=== PATIENT | female | born 1960 | race Caucasian/White ===

== ENCOUNTER 2017-09-30 08:13 | Emergency (ER) | payer OTHER ==
[~2017-09-30] VITALS: Ht 175.3 cm; Wt 61.2 kg
[~2017-09-30 08:13] MED LIST: NOHOMEMEDICATIONS
[2017-09-30 08:44] LABS: ABSOLUTE NEUTROPHILS 6.6 thou/uL (1.4-8.2); BASOPHILS 0.6 % (0.0-2.0); EOSINOPHILS 0.5 % (0.0-3.0); HEMATOCRIT 39.7 % (37.0-47.0); HEMOGLOBIN 13.4 gm/dL (12.0-15.0); LYMPHOCYTES 15.7 % (24.0-44.0); MCH 30.8 pg (26.0-34.0); MCHC 33.7 g/dL (28.0-37.0); MCV 91.3 fL (80.0-100.0); MONOCYTES 3.1 % (1.0-8.0); PLATELET COUNT 220 thou/uL (150-400); POLYS 80.1 % (36.0-66.0); RBC 4.35 mil/uL (4.20-5.00); RDW 13.2 % (10.5-14.5); WBC 8.2 thou/uL (4.0-11.0)
[2017-09-30] MEDS ORDERED: PHENERGAN 25 MG25 M1 PO (08:53)
[2017-09-30] MEDS ORDERED: ZOFRAN ODT4 MG PO (08:53)
[2017-09-30 08:56] LABS: CALCIUM 9.1 mg/dL (8.5-10.1); CREATININE 0.7 mg/dL (0.6-1.0); POTASSIUM 3.9 mmol/L (3.5-5.1)
[2017-09-30 09:02] LABS: DIRECT BILIRUBIN 0.1 mg/dL (<0.1-0.3); TOTAL BILIRUBIN 0.7 mg/dL (<0.1-1.0); TOTAL PROTEIN 6.5 g/dL (6.4-8.2)
[2017-09-30 09:35] LABS: URINE BILIRUBIN NEGATIVE (Negative); URINE BLOOD NEGATIVE (Negative); URINE CLARITY CLEAR; URINE COLOR YELLOW; URINE GLUCOSE-RANDOM* NEGATIVE (Negative); URINE KETONES 1+ (Negative); URINE LEUKOCYTES NEGATIVE (Negative); URINE NITRITE NEGATIVE (Negative); URINE PROTEIN (DIPSTICK) NEGATIVE (Negative); URINE UROBILINOGEN 0.2 E.U./dl (0.2-1.0)
[2017-09-30 10:23] VITALS: BP 113/66
== END 2017-09-30 10:24 | disposition home or self-care (01) ==
LOC: ER 08:13
PROVIDERS: Emergency Medicine
DX: R11.2 Nausea with vomiting, unspecified (principal); R51 Headache; F17.210 Nicotine dependence, cigarettes, uncomplicated

== ENCOUNTER 2017-11-17 01:44 | Inpatient (IN) | payer OTHER ==
[~2017-11-17] VITALS: Ht 175.3 cm; Wt 64.4 kg
[2017-11-17] VITALS (8 sets, daily range): BP systolic 94–127; BP diastolic 55–72
--- NOTE | ~2017-11-17 | EKG ---
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
--- NOTE | ~2017-11-17 | CATHLAB ---
[facility] [address] [place] [address] INVASIVE PROCEDURE REPORT Name: ROE LANDIS I Room #: 212-[facility] .R.#: [id number] Admission: 11/17/17 Attend Phys: Evelyn Nielsen Discharge: Date of : 62 Date of Service: 11/18/17 1524 Report #: [id number] THIS REPORT FOR: //name// APPROVED REPORT Study performed: 11/18/2017 10:36:05 Patient Details Patient Status: In-Patient Room #: The patient is a 56 year-old female Event Personnel Eligio Gardner Name Plate Stamping Machine Operator, Mayelin Keene RTR, SQL SERVER DBA Monitor, Russell Romero RN, Hank Tijerina, Ana Rosa Nuno Procedures Performed Art Access - R femoral artery* 55545 Initial Mod Sed Same Phys/QHP Gr5y [id number] Left Heart Cath w/or w/o Coronaries [id number] [facility] Hemostasis with Manual pressure Indication Positive stress test, Chest pain Risk Factors Hypercholesterolemia, Tobacco History () Procedure Narrative The Right Groin^ was infiltrated with 1% Lidocaine subcutaneous anesthesia. A PINNACLE 4FR Sheath #[id number] sheath was inserted into the RFA^. Coronary angiography was performed using coronary diagnostic catheters. The right coronary system was accessed and visualized with a JR4 catheter. The left coronary system was accessed and visualized with a JL4 catheter. The left ventricle was accessed and visualized with a Pigtail catheter. Left ventricular/Aortic Valve gradient assessed via catheter pullback. Left ventriculogram was performed in 30 degree projection. Hemostasis was obtained with manual pressure following sheath removal without any complications. The patient tolerated the procedure well and there were no complications associated with the procedure. There was no hematoma. Intraoperative Conscious Sedation Sedation start time: 11:08 Case end Time: 11:18 [facility] [place] [address] INVASIVE PROCEDURE REPORT Name: ROE LANDIS I Room #: 212-P [facility] [place] ..#: [id number] Admission: 11/17/17 Attend Phys: Evelyn Nielsen Discharge: Date of : 62 Date of Service: 11/18/17 1524 Report #: [id number] Fentanyl 50 mcg Versed 1.5 mg Fluoro Time: 1.45 minutes Dose: DAP 1140.70 cGycm2 154 mGy Contrast Type and Amount: Omnipaque 80 ml Coronary Angiography The patient's coronary anatomy is left dominant. Diagnostic Cath Left Main Large-caliber vessel, patent with no flow-limiting lesions. LAD Moderate size caliber vessel, traveling down the anterior wall, wrapping around the apex and terminating in the distal inferior wall. There are no flow-limiting lesions in the LAD. Diagonal 1 Patent vessel, with no flow-limiting lesions. Circumflex Dominant vessel with no flow-limiting lesions. OM1 Patent vessel, with no flow-limiting lesions. OM2 Patent vessel, with no flow-limiting lesions. L PDA Small-caliber vessel, with no flow-limiting lesions. Right Coronary Small, nondominant vessel, with no flow-limiting lesions. Left Ventriculography The left ventricle is normal in size with normal contractility. The left ventricular ejection fraction is estimated to be 60-65%. Left ventricular wall motion abnormalities are not present. Hemodynamics The aortic pressure is 157/82 mmHg with a mean of 110 mmHg. The left ventricular pressure is 156/11 mmHg with a mean of mmHg. The left ventricular end diastolic pressure is 27 mmHg. Conclusion 1. Angiographically normal coronary arteries. 2. Left dominant system. 3. Normal LV systolic function. 4. Recommend risk factor management. <ELECTRONICALLY SIGNED> By: Eligio Gardner MD 11/18/17 1524 1524 1524 Eligio Gardner MD /INF
--- NOTE | ~2017-11-17 | EKG ---
[address] [employer] [place] [address] ELECTROCARDIOGRAM REPORT Name: POOL LANDISETTE Ernie Room #: 212-[facility] M.R.#: [id number] Admission: 11/17/17 Attend Phys: Evelyn Bennett Discharge: Date of : 62 Report #: [id number] THIS REPORT FOR: //name// [facility] Test Date: 2017-11-17 Test Time: 06:12:05 Pat Name: ROE LANDIS Department: Room: 212 Gender: F Patient Care Coordinator: YIFAN : 1960 Requested By: Erika Rodrigez Order Number: [id number] MD: Sajan Perla Measurements Intervals [place] Rate: 54 P: 73 SC: 165 QRS: 40 QRSD: 79 T: 63 QT: 448 QTc: 425 Interpretive Statements Sinus rhythm Anteroseptal infarct, age indeterminate Repolarization abnormality Compared to ECG 08/06/2007 09:54:43 No significant changes Electronically Signed On 11-17-2017 15:02:14 CDT by Sajan Perla [email or web address] <ELECTRONICALLY SIGNED> By: Sajan Perla MD, [facility] 11/17/17 1502 1 1 Sajan Perla MD, [facility] /EPI
[~2017-11-17 01:44] MED LIST changes: +PHENERGAN 25 MG25 M1 PO; +ZOFRAN ODT4 MG PO
[2017-11-17 02:18] LABS: HEMOGLOBIN 13.4 gm/dL (12.0-15.0); MCH 31.1 pg (26.0-34.0); MCHC 34.3 g/dL (28.0-37.0); MCV 90.6 fL (80.0-100.0); PLATELET COUNT 199 thou/uL (150-400); RDW 13.4 % (10.5-14.5); WBC 4.6 thou/uL (4.0-11.0)
[2017-11-17 02:27] LABS: ANION GAP 9 mmol/L (7-16); BUN 16 mg/dL (7-18); CALCIUM 8.9 mg/dL (8.5-10.1); CHLORIDE 107 mmol/L (98-107); CO2 25 mmol/L (21-32); CREATININE 0.6 mg/dL (0.6-1.0); GLUCOSE 97 mg/dL (74-106); POTASSIUM 3.9 mmol/L (3.5-5.1); SODIUM 141 mmol/L (136-145)
[2017-11-17 02:35] LABS: ALBUMIN 3.7 g/dL (3.4-5.0); MAGNESIUM 2.1 mg/dL (1.8-2.4); SGOT 14 U/L (15-37); SGPT 19 U/L (30-65); TOTAL BILIRUBIN 0.6 mg/dL (<0.1-1.0); TOTAL PROTEIN 6.7 g/dL (6.4-8.2); TROPONIN-I < 0.04 ng/mL (<0.06)
[2017-11-17 02:47] LABS: ABSOLUTE NEUTROPHILS 1.1 thou/uL (1.4-8.2); ATYPICAL LYMPHS 3 %
[2017-11-17 04:15] LABS: CHOLESTEROL 182 mg/dL (<200); HDL CHOLESTEROL 68 mg/dL (>40); LDL CHOLESTEROL 96 mg/dL (<100); TC:HDL 2.7 Ratio (Not establshd); TRIGLYCERIDE 94 mg/dL (<150); VLDL 19 mg/dL (<40)
[2017-11-17 04:16] LABS: SERUM ASSESSMENT Clear
[2017-11-18 04:50] VITALS: BP 99/56
[2017-11-18 07:30] VITALS: BP 121/69
[2017-11-18 13:30] VITALS: BP 102/50
[2017-11-18 15:53] VITALS: BP 111/57
== END 2017-11-18 16:15 | disposition home or self-care (01) | DRG 287 ==
LOC: ER 01:44 → 2N 02:59 → EROBS 02:59 → 2N 03:22
PROVIDERS: Emergency Medicine; Nurse Practitioner Acute Care
DX: R07.9 Chest pain, unspecified (principal); D70.9 Neutropenia, unspecified; I10 Essential (primary) hypertension; E78.5 Hyperlipidemia, unspecified; Z82.49 Family history of ischemic heart disease and other diseases of the circulatory system; Z80.6 Family history of leukemia; Z87.891 Personal history of nicotine dependence; Z79.899 Other long term (current) drug therapy; Z79.82 Long term (current) use of aspirin
CPT/HCPCS: 10081

== ENCOUNTER → 2018-02-03 | Outpatient (CLI) | payer OTHER ==
--- NOTE | ~2018-02-03 | 2DMMODE ---
[facility] [address] [place] [address] 2 D/M-MODE ECHOCARDIOGRAM Name: POOL LANDISYAN Klein Room #: REG [facility]#: [id number] Admission: 02/03/18 Attend Phys: Eligio Gardner MD Discharge: Date of : 62 Date of Service: 02/03/18 1605 Report #: [id number] THIS REPORT FOR: //name// APPROVED REPORT Study performed: 02/03/2018 14:46:55 EXAM: Comprehensive 2D, Doppler, and color-flow Echocardiogram Patient Location: Echo lab Status: routine BSA: 1.75 HR: 60 bpm BP: 127/72 mmHg Other Information Study Quality: Good Indications Palpitations 2D Dimensions RVDd: 30.61 mm LVEF(%): 14.05 (>50%) IVSd: 9.63 (7-11mm) LVOT Diam: 18.91 (18-24mm) LVDd: 48.83 mm PWd: 6.78 (7-11mm) Ascending Ao: 22.65 (22-36mm) LVDs: 45.77 (25-40mm) Aortic Root: 30.89 mm IVC: 17.00 mm Sherman's LVEF: 14.05 % Volumes Left Atrial Volume (Systole) Single Plane 4CH: 19.35 mL Single Plane 2CH: 30.71 mL LA ESV Index: 17.00 mL/m2 Aortic Valve AoV Peak Buddy.: 1.34 m/s AO Peak Gr.: 7.23 mmHg LVOT Max P.09 mmHg LVOT Max V: 1.01 m/s BRIAN Vmax: 2.11 cm2 Mitral Valve E/A Ratio: 1.3 MV Decel. Time: 241.68 ms MV E Max Buddy.: 0.87 m/s [facility] [place] [address] 2 D/M-MODE ECHOCARDIOGRAM Name: ROE LANDIS I Room #: [facility]#: [id number] Admission: 02/03/18 Attend Phys: Eligio Gardner MD Discharge: Date of : 62 Date of Service: 02/03/18 1605 Report #: [id number] MV A Buddy.: 0.68 m/s MV PHT: 70.09 ms IVRT: 114.19 ms Pulmonary Valve PV Peak Buddy.: 0.98 m/s PV Peak Gr.: 3.87 mmHg Pulmonary Vein P Vein S: 0.61 m/s P Vein A: 0.24 m/s P Vein D: 0.44 m/s P Vein A Dur.: 138.4 msec P Vein S/D Ratio: 1.39 Tricuspid Valve TR Peak Buddy.: 2.39 m/s RAP Estimate: 5.00 mmHg TR Peak Gr.: 22.77 mmHg PA Pressure: 28.00 mmHg Left Ventricle The left ventricle is normal size. There is normal left ventricular wall thickness. The left ventricular systolic function is normal. The left ventricular ejection fraction is within the normal range. LVEF is 60-65%. The left ventricular diastolic function is normal. Right Ventricle The right ventricle is normal size. The right ventricular systolic function is normal. Atria The left atrium size is normal. The right atrium size is normal. Aortic Valve The aortic valve is normal in structure. No aortic regurgitation is present. There is no aortic valvular stenosis. Mitral Valve The mitral valve is normal in structure. There is no mitral valve regurgitation noted. No evidence of mitral valve stenosis. Tricuspid Valve The tricuspid valve is normal in structure. Mild tricuspid regurgitation. PAP is estimated 28 mmHg. Pulmonic Valve The pulmonary valve is normal in structure. Trace pulmonic regurgitation. [facility] [address] [email or web address] [address] 2 D/M-MODE ECHOCARDIOGRAM Name: POOL LANDISYAN Klein Room #: REG [facility]#: [id number] Admission: 02/03/18 Attend Phys: Eligio Gardner MD Discharge: Date of : 62 Date of Service: 02/03/18 1605 Report #: [id number] Great Vessels The aortic root is normal in size. IVC is normal in size and collapses >50% with inspiration. Pericardium There is no pericardial effusion. <Conclusion> The left ventricle is normal size. There is normal left ventricular wall thickness. The left ventricular systolic function is normal. The left ventricular diastolic function is normal. The right ventricle is normal size. The left atrium size is normal. The aortic valve is normal in structure. The mitral valve is normal in structure. Mild tricuspid regurgitation. PAP is estimated 28 mmHg. <ELECTRONICALLY SIGNED> By: Eligio Gardner MD 02/03/18 1605 1605 1605 Eligio Gardner MD /INF
== END ==
LOC: CV 14:31
DX: I07.1 Rheumatic tricuspid insufficiency (principal); R00.2 Palpitations

== ENCOUNTER → 2020-03-05 | Outpatient (CLI) | payer BC, OTHER | LOC: ULTRA 07:49 | PROVIDERS: ATTEND Family Medicine | DX: K76.89 Other specified diseases of liver (principal); R10.13 Epigastric pain ==

== ENCOUNTER 2020-05-20 08:58 | Emergency (ER) | payer BC, OTHER ==
[~2020-05-20] VITALS: Ht 172.7 cm; Wt 59.0 kg
[2020-05-20] MEDS ORDERED: ZOFRAN ODT4 MG PO (11:37)
[2020-05-20] MEDS ORDERED: MECLIZINE HCL25 M1 PO (11:37)
[2020-05-20 11:50] VITALS: BP 113/61
== END 2020-05-20 11:55 | disposition home or self-care (01) ==
LOC: ER 08:58
DX: H81.399 Other peripheral vertigo, unspecified ear (principal); F17.210 Nicotine dependence, cigarettes, uncomplicated